=== PATIENT | male | born 1980 | race Caucasian/White ===

== ENCOUNTER 2020-09-27 20:59 | Emergency (ER) | payer BC ==
--- NOTE | 2020-09-27 21:30 | EDM.PDOC ---
ED HPI GENERAL MEDICAL PROBLEM - General Chief Complaint: ENT Problem Stated Complaint: TOOTH PAIN Time Seen by Provider: 09/27/20 21:02 Source of Information: Reports: Patient, RN Notes Reviewed History Limitations: Reports: No Limitations - History of Present Illness INITIAL COMMENTS - FREE TEXT/NARRATIVE: Patient is a 40-year-old male presenting to the emergency department with complaints of left lower dental pain. Lower dental pain. Reports that on Wednesday he cracked his molar. He had a temporary crown put out on . He has been experiencing intense, shooting nerve pains since that time. Denies any swelling to the area. Has had no fever chills. Denies any vomiting. He has been taking [id number] Tylenol and ibuprofen with no relief. Left Tooth/Teeth Pain Score (Numeric/FACES): 3 - Related Data Allergies Allergy/AdvReac Type Severity Reaction Status Date / Time No Known Allergies Allergy Verified 02/13/19 10:59 Home Meds: Home Meds Lisinopril/Hydrochlorothiazide [Lisinopril-HCTZ 10-12.5 MG] 1 tab PO DAILY 02/13/19 [History] Hydrocodone/Acetaminophen [Hydrocodone-Acetamin 5-325 mg] 1 each PO Q4H PRN #12 tablet 09/27/20 [Rx] Naproxen [Naprosyn] 500 mg PO Q12HR 5 Days #10 tab 09/27/20 [Rx] Past Medical History Other Genitourinary History: hx chlamydia and ghonneria - Past Surgical History GI Surgical History: Reports: Hernia, Inguinal Musculoskeletal Surgical History: Reports: Shoulder Surgery Social & Family History - Tobacco Use Tobacco Use Status *Q: Never Tobacco User Second Hand Smoke Exposure: No - Caffeine Use Caffeine Use: Reports: Coffee - Recreational Drug Use Recreational Drug Use: No ED ROS ENT - Review of Systems Review Of Systems: Comprehensive ROS is negative, except as noted in HPI. ED EXAM, ENT - Physical Exam Exam: See Below General Appearance: Alert, WD/WN, No Apparent Distress Mouth/Throat: Other (Silver crown to tooth #18. No redness or swelling of the gums or jaw. No tenderness of the jaw.) Course - Vital Signs Last Recorded V/S: Last Vital Signs Temp 98.2 F 09/27/20 21:06 Pulse 75 09/27/20 21:06 Resp 20 07/02/21 21:06 BP 144/80 H 09/27/20 21:06 Pulse Ox 97 09/27/20 21:06 - Re-Assessments/Exams Free Text/Narrative Re-Assessment/Exam: Patient is a 40-year-old male presenting to the emergency department with complaints of left lower tooth pain. He has a fractured tooth #18 which was covered with a temporary crown which she states he supposed to wear for 2 weeks. Reports intense, sharp shooting nerve pain to the area of the tooth. Discussed dental block, however decision was made not to do this is a temporary fix. I will send prescription for Naprosyn to take routinely as well as hydr ocodone coated with Tylenol for relieved by this. If not better by Wednesday when the dentist reopens, he should follow-up with him. Discharge instructions as documented. Departure - Departure Time of Disposition: 21:25 Disposition: Home, Self-Care 01 Condition: Good Clinical Impression: Pain, dental - Discharge Information *PRESCRIPTION DRUG MONITORING PROGRAM REVIEWED*: Yes *COPY OF PRESCRIPTION DRUG MONITORING REPORT IN PATIENT GEOFF: No Prescriptions: Hydrocodone/Acetaminophen [Hydrocodone-Acetamin 5-325 mg] 1 each PO Q4H PRN #12 tablet PRN Reason: Pain Naproxen [Naprosyn] 500 mg PO Q12HR 5 Days #10 tab Referrals: Jeri Kaplan NP [Primary Care Provider] - Forms: ED Department Discharge Additional Instructions: You were seen in the emergency department today for left lower dental pain after having temporary crown placed on a cracked molar. There is no signs of infectio n to the area. This is likely nerve pain associated with the dental injury. A prescription for Naprosyn has been sent. Take this medication twice daily routinely for the next 5 days. For pain not relieved by this, a prescription for hydrocodone with Tylenol has also been sent. Use this only as prescribed. Do not work or drive for 12 hours after taking this as it can be sedating. If you are still having discomfort by Wednesday when the dentist reopen, recommend contacting them. Return to ER as needed. Sepsis Event Note (ED) - Evaluation Sepsis Screening Result: No Definite Risk - Focused Exam Vital Signs: Vital Signs Temp Pulse Resp BP Pulse Ox 09/27/20 21:06 98.2 F 75 20 144/80 H 97
== END 2020-09-27 21:36 | disposition home or self-care (01) ==
LOC: JD.ED 20:59
DX: K08.89 Other specified disorders of teeth and supporting structures (principal); Z79.899 Other long term (current) drug therapy
CPT/HCPCS: 99282; 99283

== ENCOUNTER 2023-04-03 23:50 | Emergency (ER) | payer BC ==
[2023-04-04] MEDS ORDERED: Acetaminophen/oxyCODONE 325-5 MG Tab PO ONE (00:35)
== END 2023-04-04 01:04 | disposition home or self-care (01) ==
LOC: JD.ED 23:50
DX: K08.89 Other specified disorders of teeth and supporting structures (principal); I10 Essential (primary) hypertension; Z86.16 Personal history of COVID-19; Z87.891 Personal history of nicotine dependence; Z79.2 Long term (current) use of antibiotics; Z79.899 Other long term (current) drug therapy
CPT/HCPCS: 99283; A9270